=== PATIENT | female | born 1940 | race Caucasian/White ===

== ENCOUNTER 2017-09-07 23:21 | Emergency (ER) | payer OTHER ==
[2017-09-07 23:39] VITALS: TEMP 97.8; O2SAT 95
--- NOTE | 2017-09-07 23:51 | ED.PDOC ---
History of Present Illness - General Chief Complaint: Blood Pressure Problem Stated Complaint: high blood pressure Time Seen by Provider: 09/07/17 23:37 Source: patient Exam Limitations: no limitations - History of Present Illness Initial Comments: Jessica Mcdonnell 77 y/o female stated that she just arrived at their cottage tonight at [facility] felt heart was racing and decided to get her bp it was elevated BP-180/105 with her machine decided to come here. She used to take blood pressure medication-Lisinopril but was discontinued by her emergency preparedness manager since it bottomed down.She stated went to [employer] and ate shrimps at one of the restaurant. She is out of town and from [place].Denies chest pain symptoms, no nausea/vomiting no headaches,no blurry vision. Timing/Duration: 1-3 hours Severity: moderate Improving Factors: nothing Worsening Factors: nothing Associated Symptoms: other - fingers tingling Allergies/Adverse Reactions: Allergies NO KNOWN ALLERGY Allergy (Verified 09/07/17 23:39) Home Medications: Ambulatory Orders Amlodipine Besylate 5 mg PO DAILY #7 tab 09/08/17 Review of Systems - Review of Systems Constitutional: States: no symptoms reported EENTM: States: no symptoms reported Respiratory: States: no symptoms reported Cardiology: States: see HPI, palpitations Gastrointestinal/Abdominal: States: no symptoms reported Genitourinary: States: no symptoms reported Neurological: States: no symptoms reported All other Systems: Reviewed and Negative, No Change from Baseline Past Medical History (General) - Patient Medical History Hx Other PMH: Yes - elevated cholesterol Surgical History: no surgical history - Social History Hx Tobacco Use: No Hx Chewing Tobacco Use: No Hx Alcohol Use: No Hx Physical Abuse: No Hx Emotional Abuse: No Hx Suspected Abuse: No - Activities of Daily Living Grooming Ability: Independent Eating (Feeding) Ability: Independent Toileting Ability: Independent Family Medical History - Family History Mother Family History: Unknown Hx Family Hypertension: Yes - dad Hx Family Stroke: Yes - dad Hx Cardiac Disease: Yes - dad Physical Exam - Physical Exam General Appearance: Alert, Comfortable Eye Exam: bilateral normal Ears, Nose, Throat: hearing grossly normal, normal ENT inspection, normal pharynx Neck: non-tender, supple Respiratory: chest non-tender, lungs clear, normal breath sounds Cardiovascular/Chest: normal peripheral pulses, regular rate, rhythm, no murmur Peripheral Pulses: radial,right: 2+, radial,left: 2+ Gastrointestinal/Abdominal: normal bowel sounds, non tender, soft Back Exam: normal inspection, no CVA tenderness, no vertebral tenderness Extremity: normal range of motion, non-tender, no calf tenderness Neurologic: alert, oriented x 3 Skin Exam: normal color, warm/dry Progress - Progress Progress: 09/08/17 00:32 Last Vital Signs Temp 97.8 F 09/07/17 23:30 Pulse 86 09/07/17 23:33 Resp 16 09/07/17 23:30 BP 158/99 09/08/17 00:22 Pulse Ox 95 09/07/17 23:30 09/08/17 00:32 Declined to have EKG/Blood work done wants to see md emergency preparedness manager in [place] tomorrow Departure - Departure Clinical Impression: Heart palpitations Hypertension Qualifiers: Hypertension type: unspecified Qualified Code(s): I10 - Essential (primary) hypertension Time of Disposition: :18 Disposition: Discharge to Home or Self Care Departure Forms: ED Discharge - Pt. Copy, Patient Portal Self Enrollment Instructions: DI for High Blood Pressure, DI for Palpitations Prescriptions: Amlodipine Besylate 5 mg PO DAILY #7 tab Home Medications: Ambulatory Orders Amlodipine Besylate 5 mg PO DAILY #7 tab 09/08/17 Additional Instructions: Need to call up you emergency preparedness manager tomorrow am 09/08/2017;Return to ER as needed
[2017-09-08 01:01] VITALS: BP 153/86
== END 2017-09-08 01:39 | disposition home or self-care (01) ==
LOC: ER 23:21
DX: R00.2 Palpitations (principal); I10 Essential (primary) hypertension